=== PATIENT | male | born 1995 | race Caucasian/White ===

== ENCOUNTER 2017-07-09 08:47 | Emergency (ER) | payer OTHER ==
[~2017-07-09] VITALS: Ht 180.3 cm; Wt 86.2 kg
--- NOTE | 2017-07-09 09:08 | NUR ---
Paged Dr Roper. Waiting to call us back.
--- NOTE | 2017-07-09 09:10 | NUR ---
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 implanted 1 month ago, started on PO abx 2 days ago. wound is red and with scant purulent drainage though surrounding skin remains intact and no induration or erythema. no other complaints. no fever, chills. resp even unlabored. VSS.
--- NOTE | 2017-07-09 10:00 | NUR ---
paged dr rodriguez for second time
--- NOTE | 2017-07-09 10:05 | NUR ---
dr upton on phone with dr rodriguez
--- NOTE | 2017-07-09 10:13 | NUR ---
jyoti panel for admission; dr hernandez admitting Addendum: 07/09/17 at 1013 by [facility] awaiting callback
[2017-07-09 10:36] LABS: BASOPHILS # (AUTO) 0.1 /CMM (0.0-0.2); EOSINOPHILS # (AUTO) 0.2 /CMM (0.0-0.7); HEMATOCRIT 49 % (39-51); HEMOGLOBIN 17.2 g/dL (13.5-17.5); LYMPHOCYTES # (AUTO) 2.1 /CMM (0.8-4.8); LYMPHOCYTES % (AUTO) 30.6 % (20.0-44.0); MEAN CORPUSCULAR HEMOGLOBIN 29 PG (26.0-33.0); MEAN CORPUSCULAR HGB CONC 35 g/dl (31.0-36.0); MEAN CORPUSCULAR VOLUME 83 fL (80-96); MONOCYTES # (AUTO) 0.5 /CMM (0.1-1.30); MONOCYTES % (AUTO) 6.7 % (2.0-12.0); NEUTROPHILS # (AUTO) 3.9 /CMM (1.8-8.9); NEUTROPHILS % (AUTO) 58.7 % (43.0-81.0); PLATELET COUNT (AUTO) 198 /CMM (150-450); RDW COEFFICIENT OF VARIATION 12.5 (11.5-15.0); RED BLOOD CELL COUNT(AUTO) 5.89 MIL/uL (4.5-6.0); WHITE BLOOD COUNT (AUTO) 6.8 K/uL (4.3-11.0)
[2017-07-09] MEDS ORDERED: HYDR-3026 PO (10:43)
[2017-07-09] MEDS ORDERED: GABA-534 PO (10:43)
[2017-07-09] MEDS ORDERED: SULF1TAB48 PO (10:43)
[2017-07-09] MEDS ORDERED: ESCI10TA PO (10:43)
[2017-07-09] MEDS ORDERED: ONDA4TAB5 PO (10:43)
[2017-07-09] MEDS ORDERED: PHEN60TA11 PO (10:43)
[2017-07-09] MEDS ORDERED: IBUP-2269 PO (10:43)
[2017-07-09] MEDS ORDERED: QUET25TA PO (10:43)
[2017-07-09] MEDS ORDERED: MAGN400O6 PO (10:43)
[2017-07-09 10:48] LABS: POTASSIUM 5.1 mmol/L (3.5-5.1)
[2017-07-09 10:52] LABS: INR 0.95 (0.87-1.13); PROTHROMBIN TIME 9.9 SECS (9.5-12.7)
--- NOTE | 2017-07-09 11:47 | NUR ---
IV removed. Catheter intact and site benign. Pressure and 4x4 applied to site. No bleeding noted.Patient discharged to home in stable condition. Written and verbal after care instructions given. Patient verbalizes understanding of instruction.
[2017-07-09 11:55] VITALS: BP 124/81
== END 2017-07-09 12:00 | disposition home or self-care (01) ==
LOC: ER 08:50
DX: S30.850A Superficial foreign body of lower back and pelvis, initial encounter (principal); L08.9 Local infection of the skin and subcutaneous tissue, unspecified; F11.10 Opioid abuse, uncomplicated; X58.XXXA Exposure to other specified factors, initial encounter; Y93.89 Activity, other specified; Y92.89 Other specified places as the place of occurrence of the external cause; Y99.8 Other external cause status
CPT/HCPCS: 36415; 80048-TC; 85025-TC; 85730-TC; A4606; Z7610